=== PATIENT | male | born 2000 | race Caucasian/White ===

== ENCOUNTER 2022-02-19 21:05 | Emergency (ER) | payer SELFPAY ==
[~2022-02-19] VITALS: Ht 185.4 cm; Wt 100.0 kg
[2022-02-19 21:09] VITALS: BP 126/84
== END 2022-02-19 22:53 | disposition left against medical advice (07) ==
LOC: ER 21:05
DX: Z53.21 Procedure and treatment not carried out due to patient leaving prior to being seen by health care provider (principal)